=== PATIENT | female | born 1970 | race Caucasian/White ===

== ENCOUNTER 2019-09-24 10:29 | Outpatient (CLI) | payer BC, SELFPAY ==
--- NOTE | ~2019-09-24 | XR_ITS ---
EXAMINATION: XR femur LT min 2V DATE: 09/24/2019 11:10 INDICATION: Disorder of skin/subcutaneous tissue. TECHNIQUE: 3 views of left femur on 5 radiographs were obtained. COMPARISON: Bilateral knee radiographs, 10/15/2008 FINDINGS: Bone alignment is normal. No fracture. There is mild left hip osteoarthritis. There is a sm all knee joint effusion. There is a large distribution of dystrophic subcutaneous calcifications in t he lateral aspect of left thigh. There is chronic lobular soft tissue in the subcutaneous fat of the left thigh, likely varices. IMPRESSION: 1. Large distribution of dystrophic subcutaneous calcifications in the lateral aspect of left thigh. This finding may be seen with fat necrosis, progressive systemic sclerosis, dermatomyositis, mixed co nnective tissue disease, and hyperparathyroidism/renal osteodystrophy. Reviewed, dictated and finalized at location A. IMPRESSION: 1. Large distribution of dystrophic subcutaneous calcifications in the lateral aspect of left thigh. This finding may be seen with fat necrosis, progressive s ystemic sclerosis, dermatomyositis, mixed connective tissue disease, and hyperp arathyroidism/renal osteodystrophy.
--- NOTE | ~2019-09-24 | US_ITS ---
EXAMINATION: US soft tissue LE LT DATE: 09/24/2019 11:09 INDICATION: Left lateral thigh mass. TECHNIQUE: Multiple grayscale and Doppler ultrasound images of the left thigh were obtained. COMPARISON: Left femur radiographs 09/24/2019 FINDINGS: There is a large distribution of subcutaneous calcifications in left lateral thigh. IMPRESSION: 1. Large distribution of dystrophic subcutaneous calcifications in the lateral aspect of left thigh. This finding may be seen with fat necrosis, progressive systemic sclerosis, dermatomyositis, mixed co nnective tissue disease, and hyperparathyroidism/renal osteodystrophy. Reviewed, dictated and finalized at location A. IMPRESSION: 1. Large distribution of dystrophic subcutaneous calcifications in the lateral aspect of left thigh. This finding may be seen with fat necrosis, progressive s ystemic sclerosis, dermatomyositis, mixed connective tissue disease, and hyperp arathyroidism/renal osteodystrophy.
== END 2019-09-24 10:30 | disposition home or self-care (01) ==
LOC: CHSIMG 10:33
PROVIDERS: PCP Family Medicine; Visit Provider Family Medicine
DX: L98.9 Disorder of the skin and subcutaneous tissue, unspecified (principal)
CPT/HCPCS: 73552; 76882

== ENCOUNTER 2019-11-21 09:10 | Outpatient (CLI) | payer BC, SELFPAY ==
--- NOTE | ~2019-11-21 | XR_ITS ---
XR femur LT min 2V DATE: 11/21/2019 09:33 INDICATION: XR femur LT min 2V TECHNIQUE: AP and lateral views COMPARISON: 09/24/2019 left femur FINDINGS: There is mild osteoarthritic spurring of the left femoral head. No fracture, dislocation, periosteal reaction or bone destruction of the left femur. Normal alignment at the left hip and knee joints. Extensive soft tissue calcifications are noted anterolaterally on the left; prior differential diagno sis of the dermatomyositis, mixed connective tissue disease, fat necrosis, progressive systemic scler osis, hyperparathyroidism and renal osteodystrophy have been suggested. IMPRESSION: Mild left hip osteoarthritis Soft tissue calcifications; see differential diagnosis above Reviewed, dictated and finalized at Location A. Reviewed, dictated and finalized at location A.
== END 2019-11-21 09:11 | disposition home or self-care (01) ==
PROVIDERS: PCP Family Medicine; Visit Provider Family Medicine
DX: M79.605 Pain in left leg (principal)
CPT/HCPCS: 73552

== ENCOUNTER 2019-12-07 09:38 | Outpatient (CLI) | payer BC, SELFPAY ==
--- NOTE | ~2019-12-07 | US_ITS ---
EXAMINATION: US biopsy st muscle DATE: 12/07/2019 11:13 INDICATION: Dystrophic calcifications of the subcutaneous tissues of the lateral left thigh. TECHNIQUE: The procedure including the risks and benefits was discussed with the patient. Risks discu ssed included bleeding and infection. The patient understood the risks and agreed to proceed. The sk in overlying the region of concern at the lateral left thigh was prepped and draped in usual sterile fashion. Anesthetic was administered with 1% lidocaine subcutaneously. A 14 gauge core biopsy needl e was advanced under continuous ultrasound observation through a couple regions in the subcutaneous t issues demonstrating shadowing dystrophic calcifications. 4 core biopsy specimens were obtained. The needle was removed and the entry site was cleaned and dressed. Post procedure ultrasound demonstra prashant no hemorrhage. FINDINGS: Ultrasound images demonstrate biopsy needle extending through regions of numerous shadowing dystrophic calcifications in the subcutaneous fat. IMPRESSION: 1. Successful Ultrasound-guided biopsy of a region of extensive dystrophic calcification in the subcu taneous fat at the lateral left thigh. Reviewed, dictated and finalized at location A. IMPRESSION: 1. Successful Ultrasound-guided biopsy of a region of extensive dystrophic calc ification in the subcutaneous fat at the lateral left thigh.
== END 2019-12-07 09:39 | disposition home or self-care (01) ==
PROVIDERS: PCP Family Medicine; Visit Provider Nurse Practitioner Family
DX: M61.9 Calcification and ossification of muscle, unspecified (principal)
CPT/HCPCS: 20206; 76942; 88305

== ENCOUNTER 2020-08-18 14:59 | Outpatient (CLI) | payer BC, SELFPAY ==
--- NOTE | ~2020-08-18 | US_ITS ---
EXAMINATION: US venous doppler [facility] DATE: 08/18/2020 15:26 INDICATION: Lower limb pain TECHNIQUE: Grayscale ultrasound images without and with compression and Doppler ultrasound images of the left lower extremity veins were obtained. COMPARISON: None. FINDINGS: The visualized portions of left common femoral vein, profunda (deep) femoral vein, femoral vein, popl iteal vein, peroneal veins, posterior tibial veins, gastrocnemius vein and greater saphenous vein out flow are patent. Subcutaneous varicosities at the medial calf and lateral thigh. A few mildly promine nt left inguinal lymph nodes with central fatty jovani, the largest measuring 1.2 cm in maximal diamete r. IMPRESSION: 1. No deep venous thrombosis in the left lower limb. 2. Mildly prominent left inguinal lymphadenopathy which is likely reactive. Reviewed, dictated and finalized at location A.
== END 2020-08-18 15:00 | disposition home or self-care (01) ==
LOC: CHSIMG 15:01
PROVIDERS: PCP Family Medicine; Visit Provider Family Medicine
DX: M79.89 Other specified soft tissue disorders (principal)
CPT/HCPCS: 93971

== ENCOUNTER 2021-10-13 07:50 | Outpatient (CLI) | payer BC, SELFPAY ==
--- NOTE | ~2021-10-13 | MM_ITS ---
EXAMINATION: MM screening [facility] BI w beth HISTORY: Screening mammogram TECHNIQUE: Craniocaudal and mediolateral oblique 3-D tomosynthesis images were obtained and synthetic 2-D images were generated. CAD analysis was submitted and interpreted. COMPARISON: 12/18/2018, 07/12/2016, 12/05/2009 BREAST PARENCHYMAL COMPOSITION: There are scattered areas of fibroglandular density. FINDINGS: There is no suspicious mass, calcification, or architectural distortion to suggest malignan cy in either breast. There has been no suspicious interval change. IMPRESSION: 1. No mammographic evidence of malignancy. 2. Recommend routine screening mammography in one year. BI-RADS Category 1: Negative Reviewed, dictated and finalized at location A.
== END 2021-10-13 07:51 | disposition home or self-care (01) ==
LOC: CHSIMG 07:52
PROVIDERS: PCP Family Medicine; Visit Provider Obstetrics & Gynecology
DX: Z12.31 Encounter for screening mammogram for malignant neoplasm of breast (principal)
CPT/HCPCS: 77063; 77067

== ENCOUNTER 2021-12-31 07:52 | Outpatient (RCR) | payer BC, SELFPAY ==
--- NOTE | 2021-12-31 09:05 | PTOPEVAL ---
Thank you for referring Eugenia Lazaro to [facility].? The patient is scheduled to be seen for therapy? __2__x/week for 10 visits. Please review, sign, date and return this plan of care DIONNA. I agree with and certify that the following plan of care is medically necessary. 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 reports she developed Query Text:As Reported By Patient/ hardening of the thigh mm. Family about 2 years ago. she states that she has been recieving US at another facility with progress noted in the tissue. She reports that the left lateral thigh is very painful especially with activity. She had been off work, but anticipates returning to work next week. She states that she cannot lay on the left side at night. She reports that her goal for therpay is to complete her US and reduce her pain. Pain Assessment Timing of Pain Assessment Timing of Pain Assessment Pre-Treatment Pain Scale Pain Scale Used Numeric (1 - 10) Self Report Pain Assessment Left Lateral Thigh(s) Reported Pain Level 3 Pain Description Aching Pain Frequency Continuous Lowest Pain Intensity 2 Greatest Pain Intensity 5 Pain Aggravating Factors Exercise/Activity Pain Score Pain Score 3: Self Report Interventions Used Interventions Used By Clinicians Phonophoresis Lower Extremity Range of Motion General Lower Extremity Range of Motion Gross Lower Extremity Range of Motion left knee AROM 0-135 degrees Comments Lower Extremity Muscle Strength Testing General Lower Extremity Strength Gross Lower Extremity Strength -bilateral hip flexion 5/5 -bilateral hip abduction 4+/5 -bilateral knee flexion 5/5 -bilateral knee extension 5/5 -bilateral ankle dorsiflexion 5/5
--- NOTE | 2022-03-10 16:33 | PTOPREEVAL ---
Assessment and note entered by JT File, PT Evaluation Information Assessment Status Re-evaluation Diagnosis calcinosis cutis Onset 11/25/21 Subjective Information patient reports she was off for a few weeks with infection at the site of calcinosis cutis. she reports she was on ABX for this and is now cleared to continue treatment. she reports she has noticed and improvement in size and palpation of the calcinosis. Reported Pain Level Pain Score 1: Self Report Assessment PT Clinical Summary mrs. roberson presents to skilled PT services for her 9th skilled PT visit. she continues to display hard calcification in the L upper thigh. however, she notes improvements and decreased sensitivity to palpation. she has made progress towards all goals, but would do well to continue skilled PT to continue to work on recution of sensitivity to palpation, pain reduction, and calcification reduction. Plan of Care Interventions Ultrasound PT Services Indicated Yes Treatment Frequency and continue skilled PT 3x weekly for 9 more visits Duration These treatments will address the objective and functional deficits as defined above. The patient will be advanced safely and appropriately in order for the patient to progress towards his/her prior level of function. Additional exercises will be introduced and as well as a comprehensive home exercise program upon discharge, if needed, ?to ensure carryover of functional gains achieved in the clinic. This treatment plan has been reviewed and agreement upon by the patient.
== END 2022-05-06 16:10 | disposition still patient (30) ==
LOC: CHSPT 07:52
DX: L94.2 Calcinosis cutis (principal)
CPT/HCPCS: 97161

== ENCOUNTER 2022-04-06 09:04 | Outpatient (CLI) | payer BC, SELFPAY ==
--- NOTE | ~2022-04-06 | XR_ITS ---
EXAM: XR knee RT 3V, XR knee LT 3V DATE: 04/06/2022 09:37 HISTORY: GENERAL KNEE PAIN-IAN, FEELS LIKE THEY'RE LOCKING . COMPARISON: X-ray right lower extremity 10/15/2008, x-ray lower extremity 12/14/2006, x-ray left femur 11/21/2019. FINDINGS: Decreased mineralization. No fracture or dislocation. No lytic or blastic lesion. Moderate lateral compartment narrowing in the right knee, with mild joint space narrowing in the remaining co mpartments bilaterally. Large subchondral geode in the right lateral tibial plateau. Tricompartmental osteophytosis, moderate in the medial compartments bilaterally and more severe in the right knee. No erosion or periosteal change. Incompletely visualized amorphous cluster of calcifications/ossificati on in the left mid thigh soft tissues, please refer to the prior reports for differential discussion. Bilateral varicosities. IMPRESSION: Tricompartmental arthritic changes of the knees, most notably in the medial compartments bilaterally and more severe in the right knee. Reviewed, dictated and finalized at location K. STAMPER IMPRESSION: Tricompartmental arthritic changes of the knees, most notably in th e medial compartments bilaterally and more severe in the right knee.
== END 2022-04-06 09:05 | disposition home or self-care (01) ==
LOC: CHSIMG 09:06
PROVIDERS: PCP Family Medicine; Visit Provider Family Medicine
DX: M25.561 Pain in right knee (principal); M25.562 Pain in left knee
CPT/HCPCS: 73562

== ENCOUNTER 2022-05-11 16:13 | Outpatient (RCR) | payer BC, SELFPAY | END 2022-05-26 16:01 | disposition home or self-care (01) | LOC: CHSPT 16:13 | DX: L94.2 Calcinosis cutis (principal) | CPT/HCPCS: 97033 ==

== ENCOUNTER 2022-11-11 07:22 | Outpatient (CLI) | payer BC, SELFPAY ==
--- NOTE | ~2022-11-11 | MM_ITS ---
EXAMINATION: MM screening [facility] w beth HISTORY: Screening mammogram TECHNIQUE: Craniocaudal and mediolateral oblique 3-D tomosynthesis images were obtained and synthetic 2-D images were generated. CAD analysis was submitted and interpreted. COMPARISON: 10/13/2021, 12/18/2018, 07/12/2016 bilateral screening mammogram examinations BREAST PARENCHYMAL COMPOSITION: There are scattered areas of fibroglandular density. FINDINGS: There is no evidence of suspicious mass, calcification, or architectural distortion to sugg est malignancy in either breast. There has been no suspicious interval change. IMPRESSION: 1. No mammographic evidence of malignancy. 2. Recommend routine screening mammography in one year. BI-RADS Category 1: Negative Reviewed, dictated and finalized at location A.
== END 2022-11-11 07:23 | disposition home or self-care (01) ==
LOC: CHSIMG 07:24
PROVIDERS: PCP Family Medicine; Visit Provider Obstetrics & Gynecology
DX: Z12.31 Encounter for screening mammogram for malignant neoplasm of breast (principal)
CPT/HCPCS: 77063; 77067

== ENCOUNTER 2023-11-14 12:18 | Outpatient (CLI) | payer BC, SELFPAY ==
--- NOTE | ~2023-11-14 | MM_ITS ---
EXAMINATION: MM screening [facility] w beth HISTORY: Screening TECHNIQUE: Craniocaudal and mediolateral oblique 3-D tomosynthesis images were obtained and synthetic 2-D images were generated. CAD analysis was submitted and interpreted. COMPARISON: Comparison to multiple prior studies sequentially, with oldest reviewed study dated 10/13. BREAST PARENCHYMAL COMPOSITION: Not dense: There are scattered areas of fibroglandular density. FINDINGS: There is no evidence of suspicious mass, calcification, or architectural distortion to sugg est malignancy in either breast. There has been no suspicious interval change. IMPRESSION: 1. No mammographic evidence of malignancy. 2. Recommend routine screening mammography in one year. BI-RADS Category 1: Negative Reviewed, dictated and finalized at location B.
--- NOTE | ~2023-11-14 | US_ITS ---
EXAMINATION: US carotid duplex BI DATE: 11/14/2023 13:18 INDICATION: Cerebral atherosclerosis. Smoker with family history of prior stroke. TECHNIQUE: Grayscale, color Doppler, and pulsed Doppler images of the cervical carotid arteries were obtained. The degree of vessel stenosis is placed in one of the following categories: normal, <50%, 5 0-69%, >=70% but less than near-occlusion, near-occlusion, or total occlusion. Note that percent sten osis relative to normal distal artery lumen diameter is indirectly measured from velocity measurement s as described by Aubrey, et al. Radiology 2003; [id number]. COMPARISON: None. FINDINGS: RIGHT: The right common carotid artery (CCA) peak systolic velocity (PSV) is 134 cm/s. The right internal ca rotid artery (ICA) PSV is 75 cm/s. The right ICA end-diastolic velocity (EDV) is 25 cm/s. The right I CA/CCA PSV ratio is 0.6. Grayscale and color Doppler images yield an estimate of <50% diameter reduct ion from plaque in the ICA. The external carotid artery (ECA) PSV is 115 cm/s. There is antegrade brett w in the right vertebral artery. LEFT: The left CCA PSV is 126 cm/s. The left ICA PSV is 80 cm/s. The left ICA EDV is 31 cm/s. The left ICA/ CCA PSV ratio is 0.6. Grayscale and color Doppler images yield an estimate of <50% diameter reduction from plaque in the ICA. The ECA PSV is 158 cm/s. There is antegrade flow in the left vertebral arter y. IMPRESSION: 1. <50% stenosis in the right internal carotid artery. 2. <50% stenosis in the left internal carotid artery. Reviewed, dictated and finalized at location A.
== END 2023-11-14 12:19 | disposition home or self-care (01) ==
LOC: CHSIMG 12:20
PROVIDERS: PCP Family Medicine; Visit Provider Family Medicine
DX: Z12.31 Encounter for screening mammogram for malignant neoplasm of breast (principal); Z82.3 Family history of stroke; R42 Dizziness and giddiness; I65.23 Occlusion and stenosis of bilateral carotid arteries
CPT/HCPCS: 77063; 77067; 93880

== ENCOUNTER 2025-01-22 15:50 | Outpatient (CLI) | payer BC, SELFPAY ==
--- NOTE | ~2025-01-22 | XR_ITS ---
XR knee LT min 4V 01/22/2025 16:21 Indication: Right knee pain Procedure: 3 views right knee Comparison: Comparison to multiple prior studies sequentially, with oldest reviewed study dated 12/14/2006. Findings: No fracture, subluxation or dislocation. There is mild lateral compartment osteoarthritis. No significant joint effusion. No foreign bodies. Impression: 1: Mild lateral compartment osteoarthritis. Reviewed, dictated and finalized at location O. Impression: 1: Mild lateral compartment osteoarthritis.
--- NOTE | ~2025-01-22 | XR_ITS ---
XR knee RT min 4V 01/22/2025 16:21 Indication: Right knee pain Procedure: 4 views right knee Comparison: 04/06/2022 Findings: No fracture, subluxation or dislocation. There is moderate osteoarthritis of the lateral compartment of the knee. No significant joint effusion. No foreign bodies. Subchondral cyst is noted in the lateral tibial plateau. Impression: 1: Moderate osteoarthritis medial compartment of the right knee. There is been progression since prior study. Reviewed, dictated and finalized at location O. Impression: 1: Moderate osteoarthritis medial compartment of the right knee. There is been progression since prior study.
== END 2025-01-22 15:51 | disposition home or self-care (01) ==
LOC: MICIMG 15:51
PROVIDERS: PCP Nurse Practitioner Family; Visit Provider Nurse Practitioner Family
DX: M17.0 Bilateral primary osteoarthritis of knee (principal)
CPT/HCPCS: 73564